=== PATIENT | male | born 1990 | race Hispanic/Latino ===

== ENCOUNTER 2023-07-16 09:00 | Outpatient (CLI) | payer OTHER ==
[2023-07-16] MEDS ORDERED: Magnevist 469MG/ML 20 ML VIAL ONE (09:08)
== END 2023-07-16 09:01 | disposition home or self-care (01) ==
LOC: CSHMRI 09:00 → MERGE 09:00 → CSHMRI 09:01
PROVIDERS: ATTEND Internal Medicine
DX: C7A.8 Other malignant neuroendocrine tumors (principal); C64.9 Malignant neoplasm of unspecified kidney, except renal pelvis; D32.0 Benign neoplasm of cerebral meninges; K86.2 Cyst of pancreas; N28.1 Cyst of kidney, acquired; G93.9 Disorder of brain, unspecified
CPT/HCPCS: 70553; 72197; 74183; A9579